=== PATIENT | male | born 2000 | race Caucasian/White ===

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

== ENCOUNTER 2020-01-24 16:26 | Emergency (ER) | payer MEDICAID, SELFPAY ==
[2020-01-24] VITALS (40 sets, daily range): BP systolic 95–134; BP diastolic 45–78; PULSE 54–88; RESP 11–26; O2SAT 96–100
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
--- NOTE | 2020-01-24 17:00 | RT.EKG_ITS ---
APPROVED REPORT Exam: Resting ECG Patient Location: E HR:54 bpm ECG Measurements Heart Rate 54 AXIS OR 131 P 60 QRSd 95 QRS 81 QT 387 T 52 QTc 366 Conclusion Sinus bradycardia...rate< 60 No STEMI. I have reviewed and interpreted ECG and agree with software generated interpretation.
[2020-01-24] MEDS: Normal Saline 1,000 ML 1000 ML IV (17:46)
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
[2020-01-24 18:25] LABS: Abs Immature Grans 0.19 10^3/uL (0.0-0.06); Absolute Basophil Count 0.05 10^3/uL (0.0-0.2); Absolute Eosinophil Count 0.14 10^3/uL (0.0-0.7); Absolute Lymphocyte Count 1.85 10^3/uL (1.2-3.4); Absolute Monocyte Count 0.29 10^3/uL (0.1-0.8); Absolute Neutrophil Count 6.02 10^3/uL (1.2-6.7); Basophils % 0.6; Eosinophils % 1.6; HCT 43.6 % (40.0-50.0); HGB 15.5 g/dL (13.5-17.5); Immature Grans % 2.2; Lymphocytes % 21.7; MCHC 35.6 % (32.0-36.0); MCV 87.2 fL (80-95); MPV 11.6 fL (8.0-11.0); Monocytes % 3.4; Neutrophils % 70.5; Nucleated RBC 0 %; Platelet Count 210 10^3/uL (130-400); RDW 11.2 % (11.8-14.1); RDW-SD 35.7 fL; WBC 8.54 10^3/uL (4.4-10.8)
[2020-01-24 18:39] LABS: ALT 67 U/L (16-63); AST 89 U/L (15-37); Albumin 4.2 g/dL (3.4-5.0); Alkaline Phosphatase 80 U/L (46-116); Anion Gap 10.5 mmol/L (3-11); BUN 9 mg/dL (7-18); Bilirubin, Total 0.4 mg/dL (0.2-1.0); CO2 26.5 mmol/L (21.0-32.0); CREATININE 1.16 mg/dL (0.70-1.30); Calcium 8.9 mg/dL (8.5-10.1); Chloride 103 mmol/L (98-107); Glucose 83 mg/dL (74-106); Magnesium 1.9 mg/dL (1.8-2.4); Potassium 3.2 mmol/L (3.5-5.1); Sodium 140 mmol/L (136-145); Total Protein 6.9 g/dL (6.4-8.2)
[2020-01-24] MEDS: Ketorolac 30 MG/ML VIAL IVP (19:11)
--- NOTE | 2020-01-24 20:00 | RT.EKG_ITS ---
APPROVED REPORT Exam: Resting ECG Patient Location: E HR:64 bpm ECG Measurements Heart Rate 64 AXIS HI 125 P 66 QRSd 93 QRS 71 QT 379 T 42 QTc 390 Conclusion Sinus rhythm...normal P axis, V-rate 60- 99
[2020-01-24 21:21] LABS: Troponin I 0.07 ng/mL (<0.06)
== END 2020-01-24 21:45 | disposition left against medical advice (07) ==
PROVIDERS: Physician Assistant; Emergency Provider Student in an Organized Health Care Education/Training Program; PCP Pediatrics
DX: R77.8 Other specified abnormalities of plasma proteins (principal); S42.031A Displaced fracture of lateral end of right clavicle, initial encounter for closed fracture; R07.81 Pleurodynia; M25.551 Pain in right hip; V53.6XXA Passenger in pick-up truck or van injured in collision with car, pick-up truck or van in traffic accident, initial encounter; Z53.29 Procedure and treatment not carried out because of patient's decision for other reasons
CPT/HCPCS: 74177; 80053; 93005; 96361; 96374; 96375; 99285; 70450; 70486; 71260; 72125; 73030; 83735; 84484; 85025; 93010; J1885; L3650

== ENCOUNTER 2020-02-04 11:37 | Outpatient (CLI) | payer MEDICAID, SELFPAY ==
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
== END 2020-02-04 11:57 ==
PROVIDERS: PCP Pediatrics; Referring Provider Pediatrics; Visit Provider Student in an Organized Health Care Education/Training Program
DX: S42.031A Displaced fracture of lateral end of right clavicle, initial encounter for closed fracture (principal)
CPT/HCPCS: 73000

== ENCOUNTER 2020-03-03 14:49 | Outpatient (CLI) | payer MEDICAID, SELFPAY ==
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
== END 2020-03-03 15:09 ==
PROVIDERS: PCP Pediatrics; Visit Provider Student in an Organized Health Care Education/Training Program
DX: S42.031A Displaced fracture of lateral end of right clavicle, initial encounter for closed fracture (principal)
CPT/HCPCS: 73000

== ENCOUNTER 2020-11-18 13:23 | Emergency (ER) | payer MEDICAID, SELFPAY ==
[2020-11-18 13:30] VITALS: BP 124/67; PULSE 68; TEMP 36.8; O2SAT 99
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
[2020-11-18] MEDS: Tetanus & Diphtheria Tox,ADULT 0.5 ML VIAL IM (14:02)
== END 2020-11-18 14:10 | disposition home or self-care (01) ==
PROVIDERS: Emergency Provider Emergency Medicine; PCP Pediatrics
DX: T22.232A Burn of second degree of left upper arm, initial encounter (principal); T22.231A Burn of second degree of right upper arm, initial encounter; X08.8XXA Exposure to other specified smoke, fire and flames, initial encounter; Y99.0 Civilian activity done for income or pay
CPT/HCPCS: 16020; 90471

== ENCOUNTER 2021-08-11 17:21 | Outpatient (REF) | payer MEDICAID, SELFPAY ==
[2021-08-11 22:24] LABS: Abs Immature Grans 0.01 10^3/uL (0.0-0.06); Absolute Basophil Count 0.03 10^3/uL (0.0-0.2); Absolute Eosinophil Count 0.07 10^3/uL (0.0-0.7); Absolute Lymphocyte Count 1.87 10^3/uL (1.2-3.4); Absolute Monocyte Count 0.32 10^3/uL (0.1-0.8); Absolute Neutrophil Count 2.43 10^3/uL (1.2-6.7); Basophils % 0.6; Eosinophils % 1.5; HCT 37.9 % (40.0-50.0); HGB 13.5 g/dL (13.5-17.5); Immature Grans % 0.2; Lymphocytes % 39.5; MCH 32.2 pg (27.0-33.0); MCHC 35.6 % (32.0-36.0); MCV 90.5 fL (80-95); MPV 11.2 fL (8.0-11.0); Monocytes % 6.8; Neutrophils % 51.4; Platelet Count 223 10^3/uL (130-400); RBC 4.19 10^6/uL (4.36-5.78); RDW 11.9 % (11.8-14.1); RDW-SD 39.3 fL; WBC 4.73 10^3/uL (4.4-10.8)
[2021-08-11 22:35] LABS: ALT 26 U/L (16-63); AST 18 U/L (15-37); Albumin 4.3 g/dL (3.4-5.0); Alkaline Phosphatase 86 U/L (46-116); Anion Gap 7.9 mmol/L (3-11); BUN 15 mg/dL (7-18); Bilirubin, Total 0.5 mg/dL (0.2-1.0); CO2 29.1 mmol/L (21.0-32.0); CREATININE 1.3 mg/dL (0.70-1.30); Calcium 9.1 mg/dL (8.5-10.1); Chloride 106 mmol/L (98-107); Glucose 88 mg/dL (74-106); Lipase 98 U/L (73-393); Sodium 143 mmol/L (136-145); Total Protein 6.8 g/dL (6.4-8.2)
[2021-08-13 10:51] LABS: COVID-19 RT-PCR UVMMC Result Negative (Negative)
== END 2021-08-11 17:22 | disposition home or self-care (01) ==
LOC: LBN 17:21
PROVIDERS: PCP Nurse Practitioner Pediatrics; Visit Provider Physician Assistant Medical
DX: B34.9 Viral infection, unspecified (principal); R10.11 Right upper quadrant pain; R07.89 Other chest pain; Z20.822 Contact with and (suspected) exposure to COVID-19
CPT/HCPCS: 80053; 83690; U0003; 85025

== ENCOUNTER 2021-08-19 00:28 | Outpatient (CLI) | payer MEDICAID, SELFPAY ==
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
== END 2021-08-19 00:48 ==
PROVIDERS: PCP Nurse Practitioner Pediatrics; Visit Provider Physician Assistant Medical
DX: R10.11 Right upper quadrant pain (principal); R11.0 Nausea
CPT/HCPCS: 76700

== ENCOUNTER 2021-11-28 16:47 | Emergency (ER) | payer MEDICAID, SELFPAY ==
[2021-11-28 16:51] VITALS: BP 116/63; PULSE 90; RESP 16; TEMP 36.8; O2SAT 99
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
== END 2021-11-28 17:37 | disposition home or self-care (01) ==
PROVIDERS: Emergency Provider Physician Assistant
DX: L03.116 Cellulitis of left lower limb (principal); L02.416 Cutaneous abscess of left lower limb
CPT/HCPCS: 10061